=== PATIENT | male | born 1940 | race Asian ===

== ENCOUNTER 2018-11-22 13:05 | Emergency (ER) | payer OTHER ==
[~2018-11-22] VITALS: Ht 167.6 cm; Wt 81.0 kg
[2018-11-22] MEDS ORDERED: GLIP5 PO (13:16)
[2018-11-22] MEDS ORDERED: METF-960 PO (13:16)
[2018-11-22] MEDS ORDERED: ATOR10TA84 PO (13:16)
[2018-11-22] MEDS ORDERED: VALS1TAB75 PO (13:16)
[2018-11-22 15:10] VITALS: BP 128/87
== END 2018-11-22 15:10 | disposition home or self-care (01) ==
LOC: EMS 13:11
DX: S92.001A Unspecified fracture of right calcaneus, initial encounter for closed fracture (principal); W11.XXXA Fall on and from ladder, initial encounter; E11.9 Type 2 diabetes mellitus without complications; I10 Essential (primary) hypertension; Z79.84 Long term (current) use of oral hypoglycemic drugs; Z79.899 Other long term (current) drug therapy; Y93.89 Activity, other specified; Y92.89 Other specified places as the place of occurrence of the external cause; Y99.8 Other external cause status
CPT/HCPCS: 29515

== ENCOUNTER 2020-01-19 13:03 | Emergency (ER) | payer OTHER ==
[~2020-01-19] VITALS: Ht 162.6 cm; Wt 72.7 kg
[~2020-01-19 13:03] MED LIST: ATOR10TA84 PO; GLIP5 PO; METF-960 PO; VALS1TAB76 PO
[2020-01-19] MEDS ORDERED: AMLO10TA7 PO (13:16)
[2020-01-19] MEDS ORDERED: CALC1TAB93 PO (13:16)
[2020-01-19] MEDS ORDERED: OMEP-99 PO (13:16)
[2020-01-19] MEDS ORDERED: IBUP-1506 PO (13:16)
[2020-01-19] MEDS ORDERED: LOSA-30 PO (13:16)
[2020-01-19] MEDS ORDERED: CefTRIAXone 1 GM/DEXTROSE 50 ML IV ONE (16:30)
[2020-01-19] MEDS ORDERED: SODIUM CHLORIDE 0.9% 1,000 ML IV ONE (16:30)
[2020-01-19] MEDS ORDERED: PERTUSS(ACELL),DIPH,TET VAC/PF 0.5 ML VIAL IM ONE (16:30)
[2020-01-19] MEDS ORDERED: OS500 PO (16:37)
[2020-01-19] MEDS ORDERED: GLIP2.5ER PO (16:37)
[2020-01-19] MEDS ORDERED: METF-911 PO (16:37)
[2020-01-19] MEDS ORDERED: OMEP20 PO (16:37)
[2020-01-19] MEDS ORDERED: POVIDONE-IODINE 10% 15 ML SOLUTION UD TP ONE (16:45)
[2020-01-19] MEDS ORDERED: BACITRACIN 0.9 GM PACKET OINTMENT TP ONE (16:45)
[2020-01-19 17:00] LABS: BASOPHILS % (AUTO) 0.9 % (0.0-2.0); HEMATOCRIT 40.4 % (41-53); HEMOGLOBIN 13.2 g/dL (13.5-17.5); LYMPHOCYTES # (AUTO) 2.4 K/uL (1.0-4.8); LYMPHOCYTES % (AUTO) 33.3 % (22.0-44.0); MEAN CORPUSCULAR HEMOGLOBIN 21.4 pg (26.0-34.0); MEAN CORPUSCULAR HGB CONC 32.6 G/dL (31.0-37.0); MEAN CORPUSCULAR VOLUME 66 fL (80-100); MONOCYTES # (AUTO) 0.6 K/uL (0.1-1.0); MONOCYTES % (AUTO) 8.4 % (2.0-9.0); NEUTROPHILS # (AUTO) 4.1 K/uL (1.8-7.7); NEUTROPHILS % (AUTO) 56.4 % (40.0-70.0); PLATELET COUNT (AUTO) 206 K/uL (150-450); RED BLOOD CELL COUNT(AUTO) 6.13 MIL/uL (4.50-5.90); RED CELL DISTRIBUTION WIDTH 15.7 % (11.5-14.5)
[2020-01-19 17:03] LABS: ANION GAP 8 mmol/L (8-16); CARBON DIOXIDE 28 mmol/L (22-29); CHLORIDE 100 mmol/L (98-107); CREATININE 0.82 mg/dL (0.60-1.30); GLUCOSE,RANDOM 186 mg/dL (70-110); POTASSIUM 3.5 mmol/L (3.5-5.1); SODIUM SERUM 136 mmol/L (136-145); UREA NITROGEN, BLOOD 12 mg/dL (7-18)
[2020-01-19 17:04] LABS: CALCIUM, TOTAL 8.9 mg/dL (8.8-10.5)
[2020-01-19 17:08] LABS: GLOMERULAR FILTR. RATE CALC > 60 mL/min (>60)
[2020-01-19 17:10] LABS: ALANINE AMINOTRANSFERASE 21 U/L (12-78); ALBUMIN 3.6 g/dL (3.4-5.0); ALKALINE PHOSPHATASE 66 U/L (46-116); ASPARTATE AMINOTRANSFERASE 14 U/L (15-37); BILIRUBIN,TOTAL 0.6 mg/dL (0.1-1.0); TOTAL PROTEIN, SERUM 8.2 g/dL (6.4-8.2)
[2020-01-19 18:53] LABS: GLUCOSE,POINT OF CARE 184 MG/DL (70-110)
[2020-01-19 18:54] VITALS: BP 144/83
== END 2020-01-19 19:07 | disposition home or self-care (01) ==
LOC: EMS 13:06
DX: S91.312A Laceration without foreign body, left foot, initial encounter (principal); L03.116 Cellulitis of left lower limb; E11.9 Type 2 diabetes mellitus without complications; I10 Essential (primary) hypertension; Z79.84 Long term (current) use of oral hypoglycemic drugs; Z79.899 Other long term (current) drug therapy; W26.0XXA Contact with knife, initial encounter; Y93.89 Activity, other specified; Y92.89 Other specified places as the place of occurrence of the external cause; Y99.8 Other external cause status
CPT/HCPCS: 36415; 73630; 80053; 82962; 85025; 87070; 87205; 90471; 90715; 96365; 99284; J0696; J7030